=== PATIENT | female | born 1985 | race Asian ===

== ENCOUNTER 2017-04-26 01:07 | Emergency (ER) | payer SELFPAY ==
[~2017-04-26] VITALS: Ht 162.6 cm; Wt 56.7 kg
--- NOTE | 2017-04-26 01:23 | NUR ---
DR SANDRA AT BEDSIDE TO EVALUATE PATIENT.
--- NOTE | 2017-04-26 01:25 | NUR ---
TO BED 2 A 32 YO FEMALE PT BIB SELF C/O LEFT SIDED CHESTPAIN 5/10 X 7 HOURS. AAOX4, NAD NOTED. VSS. NONDIAPHORETIC. AMBULATORY WITH STEADY GAIT. PLACED ON CARDIAC AND VS MONITORING. COMFORT MEASURES RENDERED.
[2017-04-26] MEDS ORDERED: IV NS 0.9% 1,000 ML BAG IV ONE (01:30)
--- NOTE | 2017-04-26 01:30 | NUR ---
STARTED A SALINE LOCK ON THE LEFT WRIST G20, BLOOD DRAWN AND SENT TO LAB.
[2017-04-26 01:45] LABS: BASOPHILS % (AUTO) 0.3 % (0.0-2.0); EOSINOPHILS # (AUTO) 0.1 /CMM (0.0-0.7); EOSINOPHILS % (AUTO) 1.7 % (0.0-6.0); HEMATOCRIT 41 % (33-45); HEMOGLOBIN 12.7 g/dL (11.5-14.8); LYMPHOCYTES % (AUTO) 37.8 % (20.0-44.0); MEAN CORPUSCULAR HEMOGLOBIN 21 PG (26.0-33.0); MEAN CORPUSCULAR HGB CONC 31 g/dl (31.0-36.0); MEAN CORPUSCULAR VOLUME 67 fL (82-100); MONOCYTES # (AUTO) 0.8 /CMM (0.1-1.30); MONOCYTES % (AUTO) 10.2 % (2.0-12.0); PLATELET COUNT (AUTO) 288 /CMM (150-450); RDW COEFFICIENT OF VARIATION 14.8 (11.5-15.0); RED BLOOD CELL COUNT(AUTO) 6.05 MIL/uL (4.0-5.2)
[2017-04-26 02:10] LABS: TROPONIN I < 0.017 ng/mL (0.00-0.056)
[2017-04-26 02:11] LABS: D-DIMER 0.25 mg/L(FEU (0.17-0.50); INR 1.02 (0.87-1.13); PROTHROMBIN TIME 10.6 SECS (9.5-12.7)
[2017-04-26 02:15] LABS: THYROID STIMULATING HORMONE < 0.007 uIU/mL (0.358-3.74)
[2017-04-26 02:26] LABS: ALANINE AMINOTRANSFERASE 61 U/L (12-78); ALBUMIN 3.3 g/dL (3.4-5.0); ALKALINE PHOSPHATASE 127 U/L (46-116); ASPARTATE AMINOTRANSFERASE 37 U/L (15-37); BILIRUBIN,DIRECT 0.1 mg/dL (0.0-0.2); BILIRUBIN,TOTAL 0.4 mg/dL (0.2-1.0); CALCIUM, SERUM 9.7 mg/dL (8.5-10.1); CARBON DIOXIDE 28 mmol/L (21-32); CHLORIDE 104 mmol/L (98-107); CREATININE 0.5 mg/dL (0.6-1.3); GLUCOSE 131 mg/dL (74-106); POTASSIUM 3.9 mmol/L (3.5-5.1); SODIUM SERUM 137 mmol/L (136-145); TOTAL PROTEIN, SERUM 7.7 g/dL (6.4-8.2); UREA NITROGEN, BLOOD 10 mg/dL (7-18)
[2017-04-26] MEDS ORDERED: PROPRANOLOL HCL IV 1 MG/ML VIAL IVP ONE ×2 (03:30→03:33)
--- NOTE | 2017-04-26 03:40 | NUR ---
MEDICATED PATIENT ORDERED BY DR SANDRA.
--- NOTE | 2017-04-26 04:06 | NUR ---
IV removed. Catheter intact and site benign. Pressure and 4x4 applied to site. No bleeding noted. Patient discharged to home in stable condition. Written and verbal after care instructions given. Patient verbalizes understanding of instruction. Patient is ambulatory with steady gait, accompanied by family. No further complaints.
[2017-04-26 04:08] VITALS: BP 121/78
[2017-04-26 04:10] LABS: EOSINOPHILS % (MANUAL) 3 % (0-4); LYMPHOCYTES % (MANUAL) 43 % (16-48); MONOCYTES % (MANUAL) 16 % (0-11.0); NEUTROPHILS % (MANUAL) 38 (42-76)
== END 2017-04-26 04:08 | disposition home or self-care (01) ==
LOC: ER 01:08
DX: E05.90 Thyrotoxicosis, unspecified without thyrotoxic crisis or storm (principal); R00.0 Tachycardia, unspecified
CPT/HCPCS: 36415; 71010; 80048; 80076; 84443; 84484; 84702; 85025; 85378; 85730; 93005; 96361; 96374; 99285; A4606; J1800; J7030; Z7610

== ENCOUNTER 2017-05-01 16:06 | Emergency (ER) | payer SELFPAY ==
[~2017-05-01] VITALS: Ht 162.6 cm; Wt 55.3 kg
--- NOTE | 2017-05-01 16:08 | NUR ---
PT AMBULATORY TO ER BED 09. C/O DIZZINESS NAUSEA W/ 2 EPISODES OF VOMITING. WAS RECENTLY DIAGNOSE W/ HYPERTHYROIDISM AND TAKING METOPROLOL. GOWNED AND PLACED ON MONITOR.VSS. AWAITING MD MCKAY.
--- NOTE | 2017-05-01 16:18 | NUR ---
DR BAKER AT BEDSIDE FOR EVAL.
--- NOTE | 2017-05-01 16:29 | NUR ---
CANDY DEPOSITING MACHINE OPERATOR AT BEDSIDE FOR BLOOD DRAW.
[2017-05-01] MEDS ORDERED: MECLIZINE HCL 25 MG TABLET PO ONE (16:30)
[2017-05-01 16:35] LABS: BASOPHILS % (AUTO) 0.4 % (0.0-2.0); EOSINOPHILS % (AUTO) 0.7 % (0.0-6.0); HEMATOCRIT 45 % (33-45); HEMOGLOBIN 14.3 g/dL (11.5-14.8); LYMPHOCYTES # (AUTO) 1.7 /CMM (0.8-4.8); LYMPHOCYTES % (AUTO) 26.2 % (20.0-44.0); MEAN CORPUSCULAR HEMOGLOBIN 21 PG (26.0-33.0); MEAN CORPUSCULAR HGB CONC 32 g/dl (31.0-36.0); MEAN CORPUSCULAR VOLUME 66 fL (82-100); MONOCYTES # (AUTO) 0.6 /CMM (0.1-1.30); MONOCYTES % (AUTO) 9.2 % (2.0-12.0); NEUTROPHILS # (AUTO) 4.2 /CMM (1.8-8.9); NEUTROPHILS % (AUTO) 63.5 % (43.0-81.0); PLATELET COUNT (AUTO) 305 /CMM (150-450); RDW COEFFICIENT OF VARIATION 13.7 (11.5-15.0); RED BLOOD CELL COUNT(AUTO) 6.78 MIL/uL (4.0-5.2); WHITE BLOOD COUNT (AUTO) 6.5 K/uL (4.3-11.0)
[2017-05-01 16:46] LABS: CARBON DIOXIDE 27 mmol/L (21-32); CHLORIDE 104 mmol/L (98-107); CREATININE 0.5 mg/dL (0.6-1.3); GLUCOSE 105 mg/dL (74-106); POTASSIUM 4.5 mmol/L (3.5-5.1); SODIUM SERUM 140 mmol/L (136-145); UREA NITROGEN, BLOOD 10 mg/dL (7-18)
[2017-05-01] MEDS ORDERED: MECLIZINE HCL 25 MG TABLET ONE ×2 (16:46→17:13)
[2017-05-01] MEDS ORDERED: ONDANSETRON 4 MG TAB.RAPDIS ONE (16:50)
[2017-05-01 16:54] LABS: TROPONIN I < 0.017 ng/mL (0.00-0.056)
[2017-05-01] MEDS ORDERED: ONDANSETRON HCL/PF 4 MG/2 ML VIAL IV ONE (17:00)
--- NOTE | 2017-05-01 18:43 | NUR ---
Patient discharged to home in stable condition. Written and verbal after care instructions given. Patient verbalizes understanding of instruction.
[2017-05-01 18:44] VITALS: BP 123/83
== END 2017-05-01 18:44 | disposition home or self-care (01) ==
LOC: ER 16:07
DX: R42 Dizziness and giddiness (principal); I10 Essential (primary) hypertension; E05.90 Thyrotoxicosis, unspecified without thyrotoxic crisis or storm
CPT/HCPCS: 36415; 80048; 84439; 84484; 84703; 85025; 93005; 99285; A4606; J8597 ×2; Q0162; Z7610

== ENCOUNTER 2020-05-27 06:30 | Emergency (ER) | payer SELFPAY ==
[~2020-05-27] VITALS: Ht 165.1 cm; Wt 62.1 kg
--- NOTE | 2020-05-27 06:49 | NUR ---
PT BIBSELF C/O SWOLLEN LYMPH NODES S/P FIRST DOSE OF MODERNA COVID VACCINE X3 DAYS AGO. PT AAOX4. VITAL SIGNS STABLE. RESPIRATIONS EVEN AND UNLABORED. NO ACUTE DISTRESS NOTED AT THIS TIME.
[2020-05-27] MEDS ORDERED: DEXAMETHASONE SOD PHOSPHATE 10 MG/ML VIAL ONE (06:52)
[2020-05-27] MEDS ORDERED: DEXAMETHASONE SOD PHOSPHATE 4 MG/ML VIAL IM ONE (07:00)
--- NOTE | 2020-05-27 07:15 | NUR ---
PROMOTIONAL ADVERTISING ASSISTANT AT BEDSIDE FOR BLOOD DRAW
[2020-05-27 07:23] VITALS: BP 143/85
--- NOTE | 2020-05-27 07:23 | NUR ---
Patient discharged to home in stable condition. Written and verbal after care instructions given. Patient verbalizes understanding of instruction.Pt ambulatory with a steady gait
[2020-05-27 08:31] LABS: MONOTEST NEGATIVE (NEGATIVE)
== END 2020-05-27 07:24 | disposition home or self-care (01) ==
LOC: ER 06:34
DX: R59.0 Localized enlarged lymph nodes (principal); R50.9 Fever, unspecified; Z20.822 Contact with and (suspected) exposure to COVID-19; F17.200 Nicotine dependence, unspecified, uncomplicated; I10 Essential (primary) hypertension; E05.90 Thyrotoxicosis, unspecified without thyrotoxic crisis or storm
CPT/HCPCS: 36415; 86308; 87070; 87880; 96372; 99283; C9803; J1100; U0003; 86403-TC